=== PATIENT | male | born 1960 | race Caucasian/White ===

== ENCOUNTER 2021-12-19 10:11 | Outpatient (CLI) | payer MEDICARE | END 2021-12-19 10:12 | disposition home or self-care (01) | LOC: CSHLAB 10:11 | PROVIDERS: ATTEND Family Medicine | DX: Z20.822 Contact with and (suspected) exposure to COVID-19 (principal); Z53.9 Procedure and treatment not carried out, unspecified reason ==

== ENCOUNTER 2021-12-23 13:29 | Outpatient (CLI) | payer MEDICARE ==
[2021-12-24 08:37] LABS: SARS-CoV-2 PCR by NAA Not Detected (NotDetected)
== END 2021-12-23 13:30 | disposition home or self-care (01) ==
LOC: CSHLAB 13:29
PROVIDERS: ATTEND Family Medicine
DX: Z20.822 Contact with and (suspected) exposure to COVID-19 (principal)
CPT/HCPCS: U0003; U0005

== ENCOUNTER 2021-12-24 14:26 | Outpatient (CLI) | payer MEDICARE | END 2021-12-24 14:27 | disposition home or self-care (01) | LOC: CSHCP 14:26 | PROVIDERS: ATTEND Family Medicine | DX: R05.3 Chronic cough (principal); J44.9 Chronic obstructive pulmonary disease, unspecified | CPT/HCPCS: 94060; 94726; 94729; 94760 ==